=== PATIENT | female | born 1975 | race Asian ===

== ENCOUNTER 2017-02-08 11:04 | Emergency (ER) | payer OTHER ==
[2017-02-08 11:12] VITALS: BP 136/86
--- NOTE | 2017-02-08 13:01 | ED Physician Documentation ---
History of Present Illness - Stated complaint Stated Complaint: R LEG NUMBNESS - Chief complaint Chief Complaint: Ext Problem - History obtained from History obtained from: Patient, Family - History of Present Illness Timing: Other (She has almost chronic low back pain but over the last day he has had some numbness in the back of the right leg without increased pain, saddle anesthesia, or fevers. No urinary incontinence.) Review of Systems Constitutional: denies: Fever, Chills Cardiac: denies: Chest pain / pressure, Palpitations Respiratory: denies: Dyspnea, Cough GI: denies: Abdominal Pain : denies: Now [facility] PAST MEDICAL HISTORY - Past Medical History Past Medical History: No - Past Surgical History Past Surgical History: Yes Ortho: Spine surgery - Present Medications Home Medications: Ambulatory Orders Medication Instructions Recorded Confirmed predniSONE [Deltasone] 20 mg PO [id number] #21 tab 02/08/17 - Allergies Allergies/Adverse Reactions: Allergies Allergy/AdvReac Type Severity Reaction Status Date / Time acetaminophen [From Vicodin] Allergy Emesis Verified 02/08/17 11:12 hydrocodone bitartrate * Allergy Emesis Verified 02/08/17 11:12 [From Vicodin] - Social History Does the pt smoke?: No Smoking Status: Never smoker Does the pt drink ETOH?: Yes ETOH Use: Beer Does the pt have substance abuse?: No - Immunizations Immunizations are current?: Yes - POLST Patient has POLST: No PD ED PE NORMAL - Vitals Vital signs reviewed: Yes - General General: Alert and oriented X 3, No acute distress - Back Back: No CVA TTP, No spinal TTP - Extremities Extremities: No deformity, No tenderness to palpate, Other (The patient has equal and normal Achilles and patellar reflexes bilaterally. Normal sensation in all areas of the legs. Patient denies saddle anesthesia. Normal strength in flexion-extension at the ankles, knees, and flexion of the hips.) - Neuro Neuro: Alert and oriented X 3, Normal speech Results - Vitals Vitals: Vital Signs - 24 hr 02/08/17 11:07 Temperature 37.2 C Heart Rate 99 Respiratory 18 Rate Blood Pressure 136/86 H O2 Saturation 98 Oxygen O2 Source Room air PD MEDICAL DECISION MAKING - ED course ED course: She has chronic back pain and now has symptoms of a lumbar radiculopathy without physical findings. Primary care follow-up was advised. This patient has seemingly uncomplicated musculoskeletal back pain. The patient has no "red flags." Specifically denies IV drug use, fevers, incontinence, saddle anesthesia. Spinal epidural abscess was considered, given that the patient has no fever, is not diabetic, has no spinal tenderness, does not use IV drugs, and has no bilateral neurologic symptoms, the diagnosis of spinal epidural abscess is considered exceedingly unlikely. Departure - Departure Disposition: Home, Self Care Clinical Impression: Lumbar radiculopathy, acute Condition: Good Record reviewed to determine appropriate education?: Yes Instructions: Lumbar Radiculopathy Prescriptions: predniSONE [Deltasone] 20 mg PO [id number] #21 tab Comments: Call your doctor to arrange a follow-up appointment, make the next available appointment. In the interim, return anytime if worse or if new symptoms develop. Your blood pressure was elevated today on check into the emergency department. This does not mean that you have hypertension, it is a common phenomenon to come to the emergency department and have elevated blood pressure. I recommend that she see your primary care physician within the week to have it rechecked when you are feeling better.
== END 2017-02-08 13:12 | disposition home or self-care (01) ==
LOC: ED 11:04
DX: M54.16 Radiculopathy, lumbar region (principal); R03.0 Elevated blood-pressure reading, without diagnosis of hypertension
CPT/HCPCS: 99283

== ENCOUNTER 2017-02-21 11:14 | Outpatient (CLI) | payer OTHER ==
--- NOTE | 2017-02-21 17:30 | XRAY Report ---
TWO VIEW LUMBAR SPINE: 02/21/2017 CLINICAL INDICATION: Low back pain. Frontal and lateral views of the lumbar spine demonstrate normal height and alignment of the vertebra l bodies. The disk spaces are preserved. There is no evidence of fracture. The bowel gas pattern i s unremarkable. IMPRESSION: NORMAL LUMBAR SPINE. JOB #: [id number] EXT JOB #:[id number]
--- NOTE | 2017-02-21 17:30 | XRAY Report ---
BILATERAL HIPS AND PELVIS: 02/21/2017 CLINICAL INDICATION: Pain. FINDINGS: Frontal view of the hips and pelvis and bilateral frogleg lateral views of the hips demons trate no evidence of fracture or dislocation. The joint spaces are preserved. No radiopaque foreign b karl is seen in the soft tissues. IMPRESSION: NORMAL HIPS AND PELVIS. JOB #: [id number] EXT JOB #:[id number]
--- NOTE | 2017-02-21 17:32 | XRAY Report ---
THREE VIEW CERVICAL SPINE: 02/21/2017 CLINICAL INDICATION: Neck pain. FINDINGS: AP, lateral, and odontoid views of the cervical spine demonstrate straightening of the nor mal cervical lordosis. There is no evidence of fracture or subluxation. The disk spaces are preserved . The prevertebral soft tissues are unremarkable. IMPRESSION: STRAIGHTENING OF THE NORMAL CERVICAL LORDOSIS. OTHERWISE, NORMAL CERVICAL SPINE. JOB #: [id number] EXT JOB #:[id number]
== END 2017-02-21 11:15 | disposition home or self-care (01) ==
LOC: DI 11:14
PROVIDERS: ATTEND Physician Assistant
DX: M54.2 Cervicalgia (principal)
CPT/HCPCS: 72040; 72100; 73521